=== PATIENT | female | born 1975 | race Caucasian/White ===

== ENCOUNTER 2021-12-19 21:43 | Emergency (ER) | payer OTHER, SELFPAY ==
--- NOTE | ~2021-12-19 | CT_ITS ---
EXAMINATION: CT abdomen pelvis wo con DATE: 12/20/2021 00:04 INDICATION: Right flank pain TECHNIQUE: Computed tomography (CT) of the abdomen and pelvis was performed without intravenous contr ast. The dose-length product was 1590.73 mGy-cm. Automated exposure control and iterative reconstruct ion technique were employed. COMPARISON: None. FINDINGS: Lung bases are unremarkable. Heart size normal. No significant pleural or pericardial effus ion. Calcified granuloma present in the liver. There is fatty infiltration of the liver. The spleen, pancr eas, right adrenal gland and kidneys are unremarkable. No stones or hydronephrosis. There is a 2.7 cm low-density mass of the left adrenal gland, consistent with adenoma. Gallbladder is mildly distended . Small fat-containing umbilical and periumbilical hernias. Nonobstructive bowel gas pattern. Normal appendix. No free air or free fluid. No abnormal pelvic mass es or fluid collections. Prominent right ovary measuring up to 5 cm maximum dimension. Consider corre lation with ultrasound. IMPRESSION: 1. Prominent right ovary measuring up to 5 cm. Consider correlation with ultrasound. 2: Low-density mass of the left adrenal gland measuring up to 2.7 cm, consistent with benign adenoma. Reviewed, dictated and finalized at location A. IMPRESSION: 1. Prominent right ovary measuring up to 5 cm. Consider correlation with ultras ound. 2: Low-density mass of the left adrenal gland measuring up to 2.7 cm, consisten t with benign adenoma.
--- NOTE | ~2021-12-19 | XR_ITS ---
EXAMINATION: [id number] INDICATION: Right chest pain TECHNIQUE: A frontal view of the chest and 3 views of the right ribs were obtained. COMPARISON: None. FINDINGS: The lungs are free of acute opacities. There is no pleural effusion or pneumothorax. The ca rdiomediastinal silhouette is normal. No displaced rib fracture is identified. IMPRESSION: 1. No acute cardiopulmonary abnormality or evidence of displaced rib fracture. Reviewed, dictated and finalized at location A.
[2021-12-19 21:48] VITALS: BP 159/97; PULSE 89; RESP 22; TEMP 36.3; O2SAT 97
[2021-12-19 23:24] LABS: Appearance Urine Clear (Clear); Bilirubin Urine Negative (Negative); Blood Urine 3+ (Negative); Glucose Urine UA Negative (Negative); Ketones Urine Negative (Negative); Leukocyte Esterase Ur Trace LEU/UL (Negative); Nitrate Urine Negative (Negative); Protein Urine Negative (Negative); Urobilinogen Urine 0.2 mg/dL (<2.0); pH Urine 5.5 (5.0-9.0)
--- NOTE | 2021-12-19 23:25 | PC.NURSE ---
Patient care report given to ROXANNE Meyer, all questions answered at this time.
[2021-12-19 23:26] LABS: Add Urine Microscopic? YES; Color Urine Dark Yellow (Yellow)
--- NOTE | 2021-12-19 23:57 | PC.NURSE ---
Continue to await med from pharmacy. Pt to CT via w/c.
--- NOTE | 2021-12-20 00:08 | PC.NURSE ---
Repeat call to pharmacy requesting pain med po. Pt updated on delay.
[2021-12-20] MEDS: NAPROXEN SODIUM 220 MG TABLET PO (00:13)
--- NOTE | 2021-12-20 00:50 | ED.BACK ---
HPI - Back Pain/Injury General Chief Complaint: Back Pain/Injury Stated Complaint: back pain, SOB Time Seen by Provider: 12/19/21 22:08 History of Present Illness HPI Narrative: 46-year-old female who presents with right flank pain, it is tender to touch, no nausea or vomiting, does not think she hit her self recently nor did any heavy lifting. States that the pain makes it harder for her to take deep breaths, and that when she is breathing rapidly, she notices her hands tingling. Related Data Allergies Allergy/AdvReac Type Severity Reaction Status Date / Time codeine Allergy Hives Verified 12/19/21 21:55 morphine Allergy Hives Verified 12/19/21 21:55 Penicillins Allergy Anaphylaxis Verified 12/19/21 21:55 Review of Systems Review of Systems: CONST: No fever. HEENT: No sore throat C/V: No chest pain RESP: Difficulty breathing GI: No nausea BACK: R flank pain : No dysuria. M/S: No joint pain. SKIN: No rash. NEURO: Tingling bilateral hands PSYCH: Denies any anxiety or stress PMFSH Past Medical History Medical History (Updated 12/20/21 @ 01:38 by Padmini Huff MD) Thrombocytopenia Social History Social History (Updated 12/20/21 @ 01:39 by Padmini Huff MD) Occupation/Education: occupation Exam Narrative: EXAMINATION OF ORGAN SYSTEMS/BODY AREAS: Constitutional: Vital signs per nursing GENERAL:[No acute distress, non-toxic appearing.] HEAD: Normal with no signs of head trauma. EYES: EOMI, conjunctiva normal ENT: Hearing grossly intact LUNGS: CTAB HEART: [Regular rate and rhythm] ABD: [Soft], [nontender to palpation] BACK: Very tender to palpation right flank EXT: Normal range of motion, bilateral radius and DP pulses equal SKIN: [No rashes or lesions.] NEURO: [Alert and oriented x 3. No gross focal sensory or strength deficits.] PSYCH: Normal affect Course Course Emergency Course: 46-year-old female presenting with right flank tenderness, vital signs stable, exam shows tenderness to palpation over the right flank without any skin changes, no exquisite tenderness, patient otherwise well-appearing here with clear lungs to auscultation bilaterally. UA negative, chest and rib x-ray negative, CT shows distended, latter but patient has not eaten for a while. Stable for discharge home as she is improved after Aleve, suspect most likely musculoskeletal pain, given return precautions and follow-up to primary care doctor. Vital Signs Vital signs: Vital Signs Temperature 97.4 F L 12/19/21 21:48 Pulse Rate 89 12/19/21 21:48 Respiratory Rate 22 H 12/19/21 21:48 Blood Pressure 159/97 H 12/19/21 21:48 Pulse Oximetry 97 12/19/21 21:48 Temperature 97.4 F L 12/19/21 21:48 Pulse Rate 89 12/19/21 21:48 Respiratory Rate 22 H 12/19/21 21:48 Blood Pressure 159/97 H 12/19/21 21:48 Pulse Oximetry 97 12/19/21 21:48 MDM - Back Pain/Injury Differential Diagnosis Differential diagnosis: Likely strain of lumbar region, renal colic, pyelonephritis, thoracic back pain and AAA (doubt this without vascular deficits or personal/family risk factors) Lab Data Attestation: I reviewed the patient's lab results. Labs: Lab Results 12/19/21 Range/Units 23:12 Urine Color Dark yellow (Yellow) Urine Appearance Clear (Clear) Urine pH 5.5 (5.0-9.0) Ur Specific [place] 1.010 (1.001-1.035) Urine Protein Negative (Negative) mg/dL Urine Glucose (UA) Negative (Negative) mg/dL Urine Ketones Negative (Negative) mg/dL Ur Blood (Man) 3+ H (Negative) Urine Nitrate Negative (Negative) Urine Bilirubin Negative (Negative) Urine Urobilinogen 0.2 (<2.0) mg/dL Leukocyte Esterase Rfl Trace H (Negative) JOY/UL UCG Bedside Result Negative Reference Range: Negative Imaging Data Attestation: I personally reviewed and interpreted this imaging study as follows: My impression: CXR/rib xr: No acute abnorma
== END 2021-12-20 01:00 | disposition home or self-care (01) ==
PROVIDERS: Emergency Provider Emergency Medicine
DX: R10.9 Unspecified abdominal pain (principal)
CPT/HCPCS: 71101; 74176; 81001; 81025; 99284; A9270

== ENCOUNTER 2022-06-10 16:50 | Emergency (ER) | payer OTHER, SELFPAY ==
--- NOTE | ~2022-06-10 | CT_ITS ---
EXAMINATION: CT facial bones w con DATE: 06/10/2022 19:16 INDICATION: Swelling at the roof of the mouth. Right-sided swelling. Dental pain. TECHNIQUE: Computed tomography (CT) of the facial bones and maxillofacial region was performed with 7 5 CC Omnipaque 350 intravenous contrast material. intravenous contrast. Automated exposure control an d iterative reconstruction technique were employed. Exam dose: 716.32 mGy-cm total exam DLP. COMPARISON: None. FINDINGS: The frontozygomatic sutures, orbital rims and ceja, nasal bones, anterior maxillary spine, maxillary bones are intact without evidence of fracture, with the exception of alveolar ridge bone d estruction associated with multiple left and right periapical abscesses in addition to multiple peria pical abscesses of the bilateral mandibular teeth as well. There is a prominent nodular nuchal periosteal thickening of the lower right maxillary sinus. The paranasal sinuses and mastoid air cells are otherwise normally developed and aerated. Severe degenerative disease is noted C5-6 and C6-7. There is moderate degenerative disc disease and m ild anterolisthesis at C4-5. There is degenerative change at the apophyseal joints throughout the cervical spine. IMPRESSION: Multiple upper and lower periapical abscesses. Reviewed, dictated and finalized at Location [facility]. Reviewed, dictated and finalized at location A.
[2022-06-10 16:52] VITALS: BP 168/90; PULSE 97; RESP 18; TEMP 37.1; O2SAT 98
--- NOTE | 2022-06-10 18:06 | ED.DENTAL ---
HPI - Dental/Oral General Chief complaint: Dental/Oral <Sherry Harris PA-C - Last Filed: 06/10/22 20:52> Stated complaint: dental pain <ORLIN Khan Last Filed: 06/10/22 20:52> Time Seen by Provider: 06/10/22 17:13 <ORLIN Khan Last Filed: 06/10/22 20:52> Source: patient <ORLIN Khan Last Filed: 06/10/22 20:52> Mode of arrival: ambulatory <ORLIN Khan Last Filed: 06/10/22 20:52> Limitations: no limitations <ORLIN Khan Last Filed: 06/10/22 20:52> History of Present Illness HPI Narrative: This is a 47 year old female that presents to the ER for dentalgia noted today. Reports swelling around an upper molar on the right side. 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 She took Ibuprofen earlier today with little relief. Denies fevers, dyspnea, or dysphagia. <Sherry Harris PA-C - Last Filed: 06/10/22 20:52> MD Complaint: tooth pain <ORLIN Khan Last Filed: 06/10/22 20:52> Location: Tooth # (3) <ORLIN Khan Last Filed: 06/10/22 20:52> Related Data Home medications: Home Medications Medication Instructions Recorded Confirmed biotin 10,000 mcg-keratin 100 mg tablet PO 02/10/22 02/10/22 tablet (Biotin Plus Keratin) black cohosh root extract 40 mg 40 mg PO DAILY 02/10/22 02/10/22 capsule calcium carb-vit [id number] 1 tablet PO DAILY 02/10/22 02/10/22 333 mg-200 unit-133 mg-5 mg tablet loratadine 10 mg tablet (Claritin) 10 mg PO DAILY 02/10/22 02/10/22 potassium citrate 99 mg capsule mg PO 02/10/22 02/10/22 vitamin B12 2,500 mcg-folic acid tablet PO 02/10/22 02/10/22 400 mcg disintegrating tablet <Sherry Harris PA-C - Last Filed: 06/10/22 20:52> Allergies/adverse reactions: Allergies Allergy/AdvReac Type Severity Reaction Status Date / Time cephalexin [From Keflex] Allergy Intermediate Hives Verified 06/10/22 18:19 codeine Allergy Hives Verified 06/10/22 18:19 morphine Allergy Hives Verified 06/10/22 18:19 Penicillins Allergy Anaphylaxis Verified 06/10/22 18:19 <Sherry Harris PA-C - Last Filed: 06/10/22 20:52> Review of Systems Review of Systems: CONSTITUTIONAL: Denies fever ENT: Reports dentalgia <ORLIN Khan Last Filed: 06/10/22 20:52> All systems reviewed & are unremarkable except as noted in HPI and below <Sherry Harris PA-C - Last Filed: 06/10/22 20:52> [facility] Past Medical History Medical History: Medical History (Updated 06/11/22 @ 00:01 by Freida Rivas) delivery delivered Thrombocytopenia <ORLIN Khan Last Filed: 06/10/22 20:52> Surgical History Surgical History: Surgical History H/O tubal ligation <ORLIN Khan Last Filed: 06/10/22 20:52> Family History Family History: Family History Mother Alcoholism Hypertension Acute myocardial infarction Father Diabetes mellitus Hypertension Heart disease Daughter Depression Grandparent Heart disease Carcinoma of colon Lung cancer <ORLIN Khan Last Filed: 06/10/22 20:52> Social History Social History: Social History Smoking status: Current some day smoker Tobacco type: e-cigarettes/vaping Alcohol intake: never Substance use: never Additional occupation/education comments: [employer] <ORLIN Khan Last Filed: 06/10/22 20:52> Exam Narrative: GENERAL: Well-appearing, well-nourished, and in no acute distress. HEAD: Normocephalic, atraumatic. EYES: EOMI. ENT: Mucous membranes moist. Oropharynx without tonsillar hypertrophy exudate or other lesions. Poor dentition. Tooth number 3 is loose, tender to palpation. There is gum swelling noted surrou
[2022-06-10] MEDS: KETOROLAC 15 MG/ML VIAL (*BKC) IV PUSH (18:23)
[2022-06-10] MEDS: ACETAMINOPHEN 500 MG TABLET 1000 MG PO (18:23)
[2022-06-10 18:24] LABS: Basophils Percent Auto 0.3 % (0.2-1.2); Eosinophils Absolute Auto 0.1 K/mm3 (0-0.3); Eosinophils Percent Auto 1.3 % (0-4.4); Hematocrit 45.1 % (37.0-47.0); Hemoglobin 15.3 g/dL (12.0-15.0); Immature Granulocyte Absolute 0.03 K/mm3 (0.00-0.031); Immature Granulocyte Percent A 0.3 % (0-0.5); Lymphocytes Absolute Auto 2.94 K/mm3 (0.9-3.2); Mean Corpuscular HGB Conc 33.9 g/dl (32-36); Mean Corpuscular Hemoglobin 29.8 pg (26-34); Mean Corpuscular Volume 87.7 fl (80-100); Mean Platelet Volume 12.1 fl (7.4-10.4); Monocytes Absolute Auto 0.9 K/mm3 (0.1-0.6); Monocytes Percent Auto 8.6 % (2.6-8.5); Neutrophils Absolute Auto 6.2 K/mm3 (1.3-6.7); Neutrophils Percent Auto 60.5 % (45.5-73.1); Platelet Count Result 128 k/mm3 (150-375); Red Blood Count 5.14 M/mm3 (4.2-5.4); Red Cell Distribution Width 13.7 % (11.5-14.5); White Blood Count 10.2 K/mm3 (4.5-10.0)
[2022-06-10 18:36] LABS: Anion Gap 12 mmol/L (8-16); Blood Urea Nitrogen 12 mg/dL (7-17); CRP < 0.5 mg/dL (<1.0); Calcium 9.2 mg/dL (8.4-10.2); Carbon Dioxide 25 mmol/L (22-30); Chloride 101 mmol/L (98-107); Estimated CRCL calculation 142 ml/min; Estimated Glomerular Filt Rate > 60; Glucose 141 mg/dL (65-110); Potassium 4.2 mmol/L (3.4-5.0); Sodium 138 mmol/L (137-145)
[2022-06-10 19:43] LABS: Erythrocyte Sedimentation Rate 11 mm/hr (0-20)
[2022-06-10] MEDS: CLINDAMYCIN 600 MG/D5W 50 ML 600 MG/50 ML PIGGYBACK 100 MG IVPB (20:22)
== END 2022-06-10 21:10 | disposition home or self-care (01) ==
PROVIDERS: Physician Assistant; Emergency Provider Preventive Medicine Aerospace Medicine; PCP Family Medicine
DX: K04.7 Periapical abscess without sinus (principal); F17.290 Nicotine dependence, other tobacco product, uncomplicated
CPT/HCPCS: 36415; 70487; 80048; 85025; 85652; 86140; 96365; 96375; 99284; A9270; J1885; Q9967

== ENCOUNTER 2022-09-27 11:34 | Emergency (ER) | payer OTHER, SELFPAY ==
--- NOTE | ~2022-09-27 | XR_ITS ---
Clinical Indication: Chest pain PA and lateral views of the chest: Comparison: None Findings: The lungs are clear, without evidence of focal consolidation or pleural effusion. Cardiome diastinal silhouette is within normal limits. Bones and soft tissues are unremarkable. Impression: Normal chest. Reviewed, dictated and finalized at location . OR EXECUTIVE ASSISTANT Impression: Normal chest.
[2022-09-27 11:41] VITALS: BP 154/91; PULSE 94; RESP 16; TEMP 37.4; O2SAT 96
--- NOTE | 2022-09-27 11:46 | ECG_ITS ---
Measurements Intervals [place] Rate: 89 P: 61 TX: 144 QRS: 27 QRSD: 90 T: 54 QT: 347 QTc: 424 Interpretive Statements SINUS RHYTHM LEFT ATRIAL ENLARGEMENT [-0.15mV P WAVE IN V1/V2] NONSPECIFIC T-WAVE ABNORMALITY ABNORMAL ECG NO PREVIOUS ECG AVAILABLE FOR COMPARISON Electronically Signed On 09-27-2022 14:16:05 FOOD ADVISER by Lyndon Rodriguez M.D.
[2022-09-27 12:00] LABS: Basophils Percent Auto 0.5 % (0.2-1.2); Eosinophils Absolute Auto 0.1 K/mm3 (0-0.3); Eosinophils Percent Auto 2.1 % (0-4.4); Hematocrit 43.6 % (37.0-47.0); Hemoglobin 14.8 g/dL (12.0-15.0); Immature Granulocyte Absolute 0.01 K/mm3 (0.00-0.031); Immature Granulocyte Percent A 0.2 % (0-0.5); Lymphocytes Absolute Auto 1.11 K/mm3 (0.9-3.2); Mean Corpuscular HGB Conc 33.9 g/dl (32-36); Mean Corpuscular Hemoglobin 29.6 pg (26-34); Mean Corpuscular Volume 87.2 fl (80-100); Mean Platelet Volume 12.3 fl (7.4-10.4); Monocytes Absolute Auto 0.6 K/mm3 (0.1-0.6); Monocytes Percent Auto 10.4 % (2.6-8.5); Neutrophils Percent Auto 67.8 % (45.5-73.1); Platelet Count Result 113 k/mm3 (150-375); Red Cell Distribution Width 13.7 % (11.5-14.5); White Blood Count 5.8 K/mm3 (4.5-10.0)
[2022-09-27 12:09] LABS: Alanine Aminotransferase 55 U/L (6-35); Albumin Level 4.7 g/dL (3.5-5.1); Alkaline Phosphatase 80 U/L (38-126); Anion Gap 7 mmol/L (8-16); Aspartate Amino Transferase 55 U/L (14-36); Bilirubin,Total 0.5 mg/dL (0.2-1.3); Blood Urea Nitrogen 10 mg/dL (7-17); Calcium 9.1 mg/dL (8.4-10.2); Carbon Dioxide 27 mmol/L (22-30); Chloride 100 mmol/L (98-107); Estimated CRCL calculation 142 ml/min; Estimated Glomerular Filt Rate > 60; Glucose 175 mg/dL (65-110); Potassium 3.9 mmol/L (3.4-5.0); Sodium 134 mmol/L (137-145)
[2022-09-27 12:20] LABS: Troponin I < 0.012 ng/mL (0.000-0.034)
--- NOTE | 2022-09-27 16:09 | ED.GENADULT ---
HPI - General Adult General Chief complaint: Upper Respiratory Infection Stated complaint: sob, cough Time Seen by Provider: 09/27/22 15:32 History of Present Illness HPI narrative: This is a 47-year-old female who presents to the ED with chief complaint of URI symptoms. This has been going on for the past 2 days. She does note some shortness of breath and some chest pain. Describes the chest pain as a chest tightness and associated with cough. Denies any increase of chest pain with exertion. Shortness of breath is much less severe compared to yesterday. She reports a cough with yellow sputum. Denies fevers, chills, abdominal pain, nausea, vomiting, lightheadedness. Related Data Home Medications Medication Instructions Recorded Confirmed biotin 10,000 mcg-keratin 100 mg tablet PO 02/10/22 02/10/22 tablet (Biotin Plus Keratin) black cohosh root extract 40 mg 40 mg PO DAILY 02/10/22 02/10/22 capsule calcium carb-vit [id number] 1 tablet PO DAILY 02/10/22 02/10/22 333 mg-200 unit-133 mg-5 mg tablet loratadine 10 mg tablet (Claritin) 10 mg PO DAILY 02/10/22 02/10/22 potassium citrate 99 mg capsule mg PO 02/10/22 02/10/22 vitamin B12 2,500 mcg-folic acid tablet PO 02/10/22 02/10/22 400 mcg disintegrating tablet Allergies Allergy/AdvReac Type Severity Reaction Status Date / Time cephalexin [From Keflex] Allergy Intermediate Hives Verified 09/27/22 15:38 codeine Allergy Hives Verified 09/27/22 15:38 morphine Allergy Hives Verified 09/27/22 15:38 Penicillins Allergy Anaphylaxis Verified 09/27/22 15:38 Review of Systems Review of Systems: CONSTITUTIONAL: Denies fever, chills, or sweats. EYES: Denies visual changes, redness, or discharge. ENT: Endorses, sore throat, congestion. Denies otalgia or rhinorrhea. CARDIOVASCULAR: Endorses chest tightness. Denies chest pain, palpitations, or edema. RESPIRATORY: Endorses cough and dyspnea. GASTROINTESTINAL: Denies abdominal pain, nausea, vomiting, or diarrhea. GENITOURINARY: Denies dysuria or hematuria. SKIN: Denies rash or itching. MUSCULOSKELETAL: Denies back pain, joint pain, or myalgia. NEUROLOGIC: Denies headache, numbness, dizziness, or weakness. PSYCHIATRIC: Denies anxiety or depression. [facility] Past Medical History Medical History (Updated 09/27/22 @ 16:58 by Odell Ramsay PA-C) delivery delivered Thrombocytopenia Surgical History Surgical History H/O tubal ligation Family History Family History Mother Alcoholism Hypertension Acute myocardial infarction Father Diabetes mellitus Hypertension Heart disease Daughter Depression Grandparent Heart disease Carcinoma of colon Lung cancer Social History Social History Smoking status: Current some day smoker Tobacco type: e-cigarettes/vaping Alcohol intake: never Substance use: never Living arrangements: alone Occupation/Education: occupation Additional occupation/education comments: [employer] Exam Narrative: GENERAL: Well-appearing, well-nourished, and in no acute distress. HEAD: Normocephalic, atraumatic. EYES: PERRLA and EOMI. ENT: Nares clear, no rhinorrhea or epistaxis. Mucous membranes moist. Posterior oropharynx erythema is present. Oropharynx without tonsillar hypertrophy exudate or other lesions. No trismus no drooling, uvula is midline. NECK: Supple. No adenopathy or masses. CHEST: No respiratory distress. Clear to auscultation. No wheezes rales or rhonchi HEART: Regular rate and rhythm. No murmur heard. Normal peripheral pulses. ABDOMEN: Soft, nontender, nondistended, normal active bowel sounds. EXTREMITIES: Normal range of motion. No edema. SKIN: Warm, dry, no rash. NEURO: Alert and oriented x3. No focal deficits. PSYCH: Normal mood and affect. Cours
[2022-09-27 16:33] VITALS: BP 152/99; PULSE 75; RESP 20; O2SAT 96
[2022-09-27 16:51] LABS: Influenza A QL RT-PCR Negative (Negative); Influenza B QL RT-PCR Negative (Negative); RSV RNA, RT-PCR Negative (Negative); SARS-CoV-2 RNA PCR Positive
[2022-09-27 17:05] VITALS: BP 159/95; PULSE 85; RESP 17; O2SAT 95
== END 2022-09-27 17:11 | disposition home or self-care (01) ==
PROVIDERS: Emergency Medicine; Emergency Provider Physician Assistant
DX: U07.1 COVID-19 (principal); E11.9 Type 2 diabetes mellitus without complications; Z28.310 Unvaccinated for COVID-19; F17.290 Nicotine dependence, other tobacco product, uncomplicated; Z79.84 Long term (current) use of oral hypoglycemic drugs
CPT/HCPCS: 36415; 71046; 80053; 84484; 85025; 87637; 93005; 99284

== ENCOUNTER 2023-02-25 13:44 | Emergency (ER) | payer OTHER, SELFPAY ==
--- NOTE | ~2023-02-25 | XR_ITS ---
EXAM: XR knee RT min 4V DATE: 02/25/2023 14:21 HISTORY: Right knee pain in the setting of twisting motion PAIN MEDIA . COMPARISON: None available. FINDINGS: Normal mineralization. No fracture or dislocation. No lytic or blastic lesion. Moderate tr icompartmental osteoarthritis. Small joint effusion. No erosion or periosteal change. Soft tissues wi thin normal limits. IMPRESSION: No acute osseous finding in the right knee. Reviewed, dictated and finalized at location K.
[2023-02-25 13:45] VITALS: BP 179/95; PULSE 99; RESP 16; TEMP 36.5; O2SAT 97
--- NOTE | 2023-02-25 13:58 | ED.GENADULT ---
HPI - General Adult General Chief complaint: Extremity Injury, Lower Stated complaint: right knee injury Time Seen by Provider: 02/25/23 13:56 Related Data Home Medications Medication Instructions Recorded Confirmed biotin 10,000 mcg-keratin 100 mg tablet PO 02/10/22 02/10/22 tablet (Biotin Plus Keratin) black cohosh root extract 40 mg 40 mg PO DAILY 02/10/22 02/10/22 capsule calcium carb-vit [id number] 1 tablet PO DAILY 02/10/22 02/10/22 333 mg-200 unit-133 mg-5 mg tablet loratadine 10 mg tablet (Claritin) 10 mg PO DAILY 02/10/22 02/10/22 potassium citrate 99 mg capsule mg PO 02/10/22 02/10/22 vitamin B12 2,500 mcg-folic acid tablet PO 02/10/22 02/10/22 400 mcg disintegrating tablet Allergies Allergy/AdvReac Type Severity Reaction Status Date / Time cephalexin [From Keflex] Allergy Intermediate Hives Verified 02/25/23 13:44 codeine Allergy Hives Verified 02/25/23 13:44 morphine Allergy Hives Verified 02/25/23 13:44 Penicillins Allergy Anaphylaxis Verified 02/25/23 13:44 PMFSH Past Medical History Medical History delivery delivered Thrombocytopenia Surgical History Surgical History H/O tubal ligation Family History Family History Mother Alcoholism Hypertension Acute myocardial infarction Father Diabetes mellitus Hypertension Heart disease Daughter Depression Grandparent Heart disease Carcinoma of colon Lung cancer Social History Social History Smoking status: Current some day smoker Tobacco type: e-cigarettes/vaping Alcohol intake: never Substance use: never Living arrangements: alone Occupation/Education: occupation Additional occupation/education comments: [employer] Course Vital Signs Vital signs: Vital Signs Temperature 97.7 F 02/25/23 13:45 Pulse Rate 99 02/25/23 13:45 Respiratory Rate 16 02/25/23 13:45 Blood Pressure 179/95 H 02/25/23 13:45 Pulse Oximetry 97 02/25/23 13:45 Oxygen Delivery Room Air 02/25/23 13:45 Temperature 97.7 F 02/25/23 13:45 Pulse Rate 99 02/25/23 13:45 Respiratory Rate 16 02/25/23 13:45 Blood Pressure 179/95 H 02/25/23 13:45 Pulse Oximetry 97 02/25/23 13:45 Oxygen Delivery Room Air 02/25/23 13:45 Medical Decision Making Vital Signs Vital Signs: Vital Signs Temperature 97.7 F 02/25/23 13:45 Pulse Rate 99 02/25/23 13:45 Respiratory Rate 16 02/25/23 13:45 Blood Pressure 179/95 H 02/25/23 13:45 Pulse Oximetry 97 02/25/23 13:45 Oxygen Delivery Room Air 02/25/23 13:45 Temperature 97.7 F 02/25/23 13:45 Pulse Rate 99 02/25/23 13:45 Respiratory Rate 16 02/25/23 13:45 Blood Pressure 179/95 H 02/25/23 13:45 Pulse Oximetry 97 02/25/23 13:45 Oxygen Delivery Room Air 02/25/23 13:45 Discharge Plan Discharge Clinical Impression: Acute pain of right knee Patient Disposition: Home, Self-Care Condition: Stable Instructions: Antibiotic Form Additional Instructions: As we discussed, please return to the Emergency Department or seek medical attention if you feel worsening or change of your symptoms including but not limited to worsening pain, numbness/tingling, lower leg pain, difficulty breathing, lightheadedness/dizziness, or any other concerning symptoms. If any appointments were recommended for you, please make sure to go to them, as follow up from the Emergency Department is important. Thank you. Prescriptions: No Action vitamin T30-jqtnk acid 2,500-400 mcg tablet,disintegrating PO black cohosh root extract 40 mg capsule 40 mg PO DAILY Biotin Plus Keratin 10,000-100 mcg-mg tablet PO calcium carb-D3-mag [id number] [phone] un-ogzf-kd-mg tablet 1 tablet PO DAILY
--- NOTE | 2023-02-25 13:58 | ED.GENADULT ---
HPI - General Adult General Chief complaint: Extremity Injury, Lower Stated complaint: right knee injury Time Seen by Provider: 02/25/23 13:56 History of Present Illness HPI narrative: 47-year-old female history of elevated BMI, left knee ligamentous injuries presented with right knee pain. Per patient, 4 days prior she planted on her right foot twisted it. She had pain to the medial aspect of the knee, took ibuprofen improved. Today, she did the same thing, planted her right foot twisted and had pain to medial right knee. Had continued pain, so presents to the ED for further evaluation. Denies injury anywhere else. Denied weakness, numbness, nausea, vomiting. Related Data Home Medications Medication Instructions Recorded Confirmed biotin 10,000 mcg-keratin 100 mg tablet PO 02/10/22 02/10/22 tablet (Biotin Plus Keratin) black cohosh root extract 40 mg 40 mg PO DAILY 02/10/22 02/10/22 capsule calcium carb-vit [id number]-tbfu 1 tablet PO DAILY 02/10/22 02/10/22 333 mg-200 unit-133 mg-5 mg tablet loratadine 10 mg tablet (Claritin) 10 mg PO DAILY 02/10/22 02/10/22 potassium citrate 99 mg capsule mg PO 02/10/22 02/10/22 vitamin B12 2,500 mcg-folic acid tablet PO 02/10/22 02/10/22 400 mcg disintegrating tablet Allergies Allergy/AdvReac Type Severity Reaction Status Date / Time cephalexin [From Keflex] Allergy Intermediate Hives Verified 02/25/23 13:44 codeine Allergy Hives Verified 02/25/23 13:44 morphine Allergy Hives Verified 02/25/23 13:44 Penicillins Allergy Anaphylaxis Verified 02/25/23 13:44 Review of Systems Review of Systems: See HPI PMFSH Past Medical History Medical History delivery delivered Thrombocytopenia Surgical History Surgical History H/O tubal ligation Family History Family History Mother Alcoholism Hypertension Acute myocardial infarction Father Diabetes mellitus Hypertension Heart disease Daughter Depression Grandparent Heart disease Carcinoma of colon Lung cancer Social History Social History Smoking status: Current some day smoker Tobacco type: e-cigarettes/vaping Alcohol intake: never Substance use: never Living arrangements: alone Occupation/Education: occupation Additional occupation/education comments: [employer] Exam Narrative: General: Alert, calm and cooperative, no acute distress, phonating, sitting comfortably during visit HEENT: Pupils equal round and reactive to light, extra ocular movements intact, no conjunctival injection, head atraumatic, neck supple without meningismus Back: no midline tenderness to palpation, no step offs Extremities: Right knee with no varus/valgus/lateral/medial laxity, no significant effusion, no erythema, full range of motion to knee, sensation intact, PT and DP palpable, soft compartments, warm, remaining extremities within normal limits, No edema, palpable peripheral pulses, warm, well perfused, no tenderness to bilateral calves Neurological: Alert, moving all extremities symmetrically, ambulating without deficit Course Vital Signs Vital signs: Vital Signs Temperature 97.7 F 02/25/23 13:45 Pulse Rate 99 02/25/23 13:45 Respiratory Rate 16 02/25/23 13:45 Blood Pressure 179/95 H 02/25/23 13:45 Pulse Oximetry 97 02/25/23 13:45 Oxygen Delivery Room Air 02/25/23 13:45 Temperature 97.7 F 02/25/23 13:45 Pulse Rate 99 02/25/23 13:45 Respiratory Rate 16 02/25/23 13:45 Blood Pressure 179/95 H 02/25/23 13:45 Pulse Oximetry 97 02/25/23 13:45 Oxygen Delivery Room Air 02/25/23 13:45 Medical Decision Making [facility] Narrative Medical decision making narrative: 47 year old female history of elevated BMI, left knee ligamentous injuries p
[2023-02-25] MEDS: ACETAMINOPHEN 500 MG TABLET 1000 MG PO (14:23)
[2023-02-25] MEDS: KETOROLAC 30 MG/ML VIAL (*BKC) IM (14:24)
== END 2023-02-25 16:13 | disposition home or self-care (01) ==
PROVIDERS: Emergency Provider Emergency Medicine
DX: S89.91XA Unspecified injury of right lower leg, initial encounter (principal); F17.290 Nicotine dependence, other tobacco product, uncomplicated; X50.9XXA Other and unspecified overexertion or strenuous movements or postures, initial encounter
CPT/HCPCS: 73564; 96372; 99283; A9270; J1885